=== PATIENT | female | born 1975 ===

== ENCOUNTER 2016-10-08 20:39 | Emergency (ER) | payer BC, MEDICAID ==
[2016-10-08 21:02] VITALS: BP 144/89; PULSE 68; RESP 20; TEMP 98.2; O2SAT 97
[2016-10-08] MEDS ORDERED: Lidocaine 5% Patch TD STA (21:07)
--- NOTE | 2016-10-08 21:07 | C.PDOC ---
History Of Present Illness Patient is a 40 year old female who presents to the ER with a complaint of progressive pain to the lower back ever since she slipped down the stairs and injured her lower back and coccyx region. Patient states the pain worsens with movement and long periods of sitting. Denies numbness, weakness, incontinence, abdominal pain, fever, chills, dysuria, or hematuria. Time Seen by Provider: 10/08/16 20:54 Chief Complaint (Nursing): Back Pain History Per: Patient History/Exam Limitations: no limitations Onset/Duration Of Symptoms: Days (2 weeks) Quality Of Discomfort: Unable To Describe Previous Symptoms: None Associated Symptoms: denies: Incontinence, New Weakness, New Numbness Exacerbating Factor(s): Movement, Sitting (Prolonged periods) Recent travel outside of the [place]: No Past Medical History Reviewed: Historical Data, Nursing Documentation, Vital Signs Vital Signs: Last Vital Signs Temp 98.2 F 10/08/16 20:57 Pulse 68 10/08/16 20:57 Resp 20 10/08/16 20:57 BP 144/89 10/08/16 20:57 Pulse Ox 97 10/08/16 21:55 - Medical History PMH: No Chronic Diseases Surgical History: No Surg Hx Family History: States: Unknown Family Hx - Social History Hx Alcohol Use: Yes Hx Substance Use: No - Immunization History Hx Tetanus Toxoid Vaccination: No Hx Influenza Vaccination: No Hx Pneumococcal Vaccination: No Review Of Systems Constitutional: Negative for: Fever, Chills Gastrointestinal: Negative for: Abdominal Pain Genitourinary: Negative for: Dysuria, Incontinence, Hematuria Musculoskeletal: Positive for: Back Pain Neurological: Negative for: Weakness, Numbness Physical Exam - Physical Exam Appears: Non-toxic, No Acute Distress Skin: Normal Color, Warm, Dry, No Rash Head: Atraumatic, Normacephalic Eye(s): bilateral: Normal Inspection, PERRL, EOMI Oral Mucosa: Moist Neck: Normal ROM Chest: Symmetrical, No Tenderness Cardiovascular: Rhythm Regular, No Friction Rub, No Murmur Respiratory: Normal Breath Sounds, No Rales, No Rhonchi, No Wheezing Gastrointestinal/Abdominal: Soft, No Tenderness Back: No Vertebral Tenderness, Paraspinal Tenderness (Right sided) Extremity: Normal ROM (x4), No Pedal Edema Pulses: Left Dorsalis Pedis: Normal, Right Dorsalis Pedis: Normal Neurological/Psych: Oriented x3, Normal Speech, Normal Cognition, Normal Motor, Normal Sensation Gait: Steady ED Course And Treatment O2 Sat by Pulse Oximetry: 97 (Room air) Pulse Ox Interpretation: Normal Progress Note: LS spine x-ray ordered. Flexeril and toradol administered. Lidoderm applied. Medical Decision Making Medical Decision Making: On re-exam, the patient reports improvement of symptoms. Lungs are CTA, heart is RRR, abdomen is soft, non-tender and tolerating PO well. Ambulatory in the ED with steady gait. Follow up with the medical doctor within 1-2 days. Return if worsened Disposition - Disposition Referrals: [facility] [Outside] Disposition: HOME/ ROUTINE Disposition Time: 21:54 Condition: GOOD Additional Instructions: Follow up with the medical doctor within 1-2 days. Return if worsened Prescriptions: Cyclobenzaprine [Flexeril] 5 mg PO TID #21 tab Naproxen [Naprosyn] 500 mg PO BID #20 tab predniSONE [Prednisone] 20 mg PO BID #10 tab Instructions: Acute Low Back Pain (ED) Forms: Work Excuse - Clinical Impression Clinical Impression: Contusion of back - Scribe Statement The provider has reviewed the documentation as recorded by the Scribe Chip Cooney All medical record entries made by the Mukulibbautista were at my direction and personally dictated by me. I have reviewed the chart and agree that the record accurately reflects my personal performance of the history, physical exam, medical decision making, and the department course for this patient. I have also personally directed, reviewed, and agree with the discharge instructions and disposition.
[2016-10-08] MEDS ORDERED: Lidocaine 5% Patch TD ONE (21:19)
--- NOTE | 2016-10-09 11:00 | RAD ---
PROCEDURE: Radiographs of the Lumbar Spine. HISTORY: Back injury, fall, pain to coccyx and LS spine COMPARISON: No prior. FINDINGS: BONES: There is 5 mm degenerative retrolisthesis of L5 on S1. Lumbar lordosis is maintained. There is no acute fracture or bone destruction. DISC SPACES: There is mild degenerative osteoarthrosis at L5-S1. The remaining disc heights are preserved. OTHER FINDINGS: . There are no pathologic soft tissue calcifications. Both sacroiliac joints are normal the IMPRESSION: No acute fracture. Mild degenerative osteoarthrosis at L5-S1.
== END 2016-10-08 21:59 | disposition home or self-care (01) ==
LOC: C.ER 20:39
DX: S30.0XXA Contusion of lower back and pelvis, initial encounter (principal); W10.9XXA Fall (on) (from) unspecified stairs and steps, initial encounter
CPT/HCPCS: 72100; 96372; 99283; J1885